=== PATIENT | female | born 1960 | race Caucasian/White ===

== ENCOUNTER 2017-01-07 17:20 | Emergency (ER) | payer BC ==
[2017-01-07 17:32] VITALS: BP 141/87
--- NOTE | 2017-01-07 17:57 | UC ---
Minor Trauma HPI - HPI Summary HPI Summary: 56 y/o female presents to the urgent care c/o Rt rib pain pablito has become worse for the past 2 days on deep breaths. Pt reports he fell off a horse 3 weeks ago and injured her RT shoulder. No chest x-ray done at the ER since her pain was more on the Rt shoulder. Pain is 6/10 when she coughs, take deep breaths, or makes certain movement. She has been taking Ibuprofen to alleviate symptoms which has helped. Pt denies chest pain, SOB, N/V/D, abdominal pain, urinary problems. - History of Current Complaint Chief Complaint: UCTrauma Stated Complaint: RT SIDE RIB AREA PAIN Time Seen by Provider: 01/07/17 17:36 Hx Obtained From: Patient ?: No Onset/Duration: Gradual Onset - after falling from a horse, Lasting Days - 2 days, Still Present Onset Of Pain: Post Accident Severity Initially: Mild Severity Currently: Moderate Pain Intensity: 6 - on depp breathing Pain Scale Used: 0-10 Numeric Mechanism Of Injury: Blunt Trauma, Fall From Height Of: - from a horse Aggravating Factor(s): Coughing, Deep Breaths, Movement Alleviating Factor(s): OTC Meds - Risk Factors Penetrating Injury Risk Factors: Negative - Allergies/Home Medications Allergies/Adverse Reactions: Allergies Allergy/AdvReac Type Severity Reaction Status Date / Time No Known Allergies Allergy Verified 01/07/17 17:32 PMH/Surg Hx/FS Hx/Imm Hx Previously Healthy: Yes - Surgical History Surgical History: Yes Surgery Procedure, Year, and Place: left wrist surgery - Family History Known Family History: Positive: Diabetes Negative: Cardiac Disease, Hypertension - Social History Occupation: Employed Full-time Lives: With Family Alcohol Use: Occasionally Substance Use Type: None Smoking Status (MU): Never Smoked Tobacco Review of Systems Constitutional: Negative Skin: Negative Eyes: Negative ENT: Negative Respiratory: Negative Cardiovascular: Negative Gastrointestinal: Negative Genitourinary: Negative Motor: Negative Neurovascular: Negative Musculoskeletal: Other: - RT side RiB pain s/p fall Neurological: Negative Psychological: Negative All Other Systems Reviewed And Are Negative: Yes Physical Exam Triage Information Reviewed: Yes Appearance: Well-Appearing, No Pain Distress, Well-Nourished Vital Signs: Initial Vital Signs Temp 98.8 F 01/07/17 17:27 Pulse 93 09/05/17 17:27 Resp 16 01/07/17 17:27 BP 141/87 01/07/17 17:27 Pulse Ox 98 01/07/17 17:27 Vital Signs Reviewed: Yes Eye Exam: Normal Eyes: Positive: Conjunctiva Clear - PERRLA, EOMI ENT Exam: Normal ENT: Positive: Normal ENT inspection, Hearing grossly normal, Pharynx normal, TMs normal Dental Exam: Normal Neck exam: Normal Neck: Positive: Supple, Nontender, No Lymphadenopathy Respiratory Exam: Normal Respiratory: Positive: Chest non-tender, Lungs clear, Normal breath sounds Cardiovascular Exam: Normal Cardiovascular: Positive: RRR, No Murmur, Pulses Normal, Brisk Capillary Refill Abdominal Exam: Normal Abdomen Description: Positive: Nontender, No Organomegaly, Soft. Negative: CVA Tenderness (R), CVA Tenderness (L) Bowel Sounds: Positive: Present Musculoskeletal: Positive: Strength Intact, Other: - Mild Tendernes to palaption over the Rt side ribs between rib 9-11, no swelling or erythema observed. Specially on deep breathing. Neurological Exam: Normal Psychological Exam: Normal Skin Exam: Normal Minor Trauma Course/Dx - Course Course Of Treatment: 56 y/o female presents to the urgent care c/o Rt rib pain pablito has become worse for the past 2 days on deep breaths. Pt reports he fell off a horse 3 weeks ago and injured her RT shoulder. No chest x-ray done at the ER since her pain was more on the Rt shoulder. Pain is 6/10 when she coughs, take deep breaths, or makes certain movement. She has been taking Ibuprofen to alleviate symptoms which has helped. Pt denies chest pain, SOB, N/V/D, abdominal pain, urinary problems. Hx obtained. RT RIB unilateral X-ray ordered Impression:No evidence of Rt rib fracture or otehr traumatic injury. Most likely Muscle spasm. Ibuprofen 800mg PO given to pt at the clinic for pain. Pt tolerated well medication and felt better.Pt Rx Naproxen PO and Flexeril PO to allevaite muscle spasm and pain. Advised if symptoms do not improve to f/u with her PCP or return to the urgent care for further management. Pt BP mildly elevated today. Pt advised to decrease salt in her diet and monitor BP if continues to be elevated to f/u with her PCP. Pt understood and agreed and aleft the clinic ambulating. A&OX3 - Differential Dx/Diagnosis Differential Diagnosis/HQI/PQRI: Abrasion(s), Contusion(s), Fracture Provider Diagnoses: 1- Right Rib pain. 2- Muscle spasm. 3- Elevated BP w/o Hx of HTN Discharge - Discharge Plan Condition: Stable Disposition: HOME Prescriptions: Cyclobenzaprine TAB* [Flexeril 10 MG TAB*] 10 mg PO TID PRN #15 tab PRN Reason: Spasms - Muscle Naproxen TAB* [Naprosyn 250 mg TAB*] 500 mg PO Q8H PRN #21 tab PRN Reason: Pain Patient Education Materials: Low Sodium Diet (ED), Muscle Spasm (ED) Referrals: Nancy Cummings MD [Primary Care Provider] - 2 Days Additional Instructions: 1-Please take Medication as directed to alleviate muscle spasm and pain. Please avoid strenuous exercise, driving. and rest.. 2-If symptoms do not improve or worsen please return to the urgent care or f/u with your PCP for further evaluation and treatment. 3- Your BP today is elevated, please decrease salt in your diet, monitor your BP , if it continues to be elevated please f/y with your PCP for further management.
[2017-01-07] MEDS ORDERED: Ibuprofen TAB* 400 MG PO ONE (18:52)
--- NOTE | 2017-01-07 19:00 | RAD ---
Indication: RIGHT rib pain post fall 3 weeks ago. Pain with deep inspiration. Comparison: No relevant prior exams available on the [facility] [place] PACS. Technique: Dual energy PA chest and 4 dedicated views of the RIGHT ribs obtained. Report: Inferolateral skin marker noted indicating the site of clinical concern. No RIGHT rib fracture, pulmonary contusion, pleural effusion, or pneumothorax evident. The heart, pulmonary vasculature, and mediastinal contours are unremarkable. Unremarkable soft tissue contours. IMPRESSION: No evidence for RIGHT rib fracture or other traumatic injury.
== END 2017-01-07 19:22 | disposition home or self-care (01) ==
LOC: UCCORT 17:20
DX: R07.81 Pleurodynia (principal); M62.838 Other muscle spasm; R03.0 Elevated blood-pressure reading, without diagnosis of hypertension
CPT/HCPCS: 99212; A9270-GY; G0463

== ENCOUNTER 2018-03-08 07:23 | Emergency (ER) | payer BC ==
--- OUTSIDE RECORDS SUMMARY | 2018-03-08 07:41 | XMS REPORT ---
:1960 External Reference #:[id number] 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 Payers Type Date Identification Numbers Payment Provider Subscriber Commercial Effective: Policy Number: [facility] Commercial Amelia Chen 2012 [id number] PayID: [id number] [address] [place] [place] [id number] Medigap Part B Effective: Policy Number: [facility] Commercial Amelia Chen 2011 [id number] Expires: 2012 PayID: [id number] [facility] [id number] [place] [phone] Problems Date Description Provider Status Onset: 11/26/2012 Nancy Cuellar MD Active Onset: 11/15/2011 Genital herpes simplex Nancy Cuellar MD Active Onset: 09/20/2010 FH: Skin disease Nancy Cuellar MD Active Onset: 09/15/2009 Posterior rhinorrhea Nancy Cuellar MD Active Onset: 09/15/2009 Vitamin D deficiency Nancy Cuellar MD Active Onset: 06/07/2008 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 Onset: 07/17/2006 Tension-type headache Nancy Cuellar MD Active Onset: 03/12/2005 Moderate recurrent major depression Nancy Cuellar MD Active Onset: 03/12/2005 Elevated blood-pressure reading without Nancy Cuellar MD Active diagnosis of hypertension Onset: 03/02/2015 History of malignant neoplasm of skin Nancy Cuellar MD Active Onset: 03/02/2015 Osteochondropathy Nancy Cuellar MD Active Family History Date Family Member(s) Problem(s) Comments Father Hypertension Father Cancer, Skin Father DM2 Father Diabetes, Adult Mother Hypertension Mother due to Cancer, Lung () Mother Hypercholesterolemia First Son No Current Problems First Daughter No Current Problems First Brother Cancer, Skin First Sister Cancer, Skin Second Sister Depression Second Sister Osteoporosis Social History Type Date Description Comments Marital Status Lives With Alone 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 Allergies, Adverse Reactions, Alerts Date Description Reaction Status Severity Comments 12/10/2004 NKDA active Medications Medication Date Status Form Strength Qnty SIG Indications Ordering Provider Vitamin D High 03/02 Active Capsules 1000Unit 30cap 1 [facility] mouth [facility].9 [facility] every day Nancy rivera MD Cyclobenzaprine 07/09 Active Tablets 5mg 90tab 1 by mouth M50.00 [place] HCL /2012 s three times Nancy rivera, a day as MD needed, caution sedation Valacyclovir HCL 12/27 Active Tablets 500mg 6tabs 1 po bid x A60.9 [place] /2005 3 day prn Nancy rivera for MD outbreak Doxycycline 10/28 Hx Tablets 100mg 28tab 1 by mouth R50.9 [place] Monohydrate /2017 s twice daily Nancy rivera, - 1 hour 02/23 before meal Melatonin 03/02 Hx Capsules 2.5mg 30cap 1 by mouth G47.9 Cun s every night Nancy rivera, - at bedtime 03/20 as needed /2016 Miralax 03/02 Hx Powder 3350NF 1Can 17 grams in K59.00 8 oz of m, Nancy, - fluid every MD 03/07 day needed constipatio n Massage Therapy 03/02 Hx as needed, M50.00 [place] /2014 medically Nancy rivera, - necessary MD 03/07 Flonase Allergy Hx Suspension 50mcg/Act 1-2 sprays J30.9 Unknown Relief /0000 each - nostril 1-2 10/27 times daily Immunizations CPT Code Status Date Vaccine Lot # [id number] Given 10/25/1999 Tetanus And Diptheria Toxoids For Adult Use-preservative free [id number] Refused 03/02/2015 Tdap (Adacel) Ages 7 And Above Only Vital Signs Date Vital Result Comment 02/24/2018 Body Temperature 98.9 F Weight 145.00 lb Heart Rate 73 /min BP Systolic 112 mmHg BP Diastolic 70 mmHg Respiratory Rate 16 /min Height 62.5 inches 5'2.50" O2 % BldC Oximetry 97 % ra BMI (Body Mass Index) 26.1 kg/m2 10/28/2017 Body Temperature 101.1 F Weight 139.00 lb Heart Rate 69 /min BP Systolic 118 mmHg BP Diastolic 76 mmHg Respiratory Rate 16 /min Height 62.5 inches 5'2.50" O2 % BldC Oximetry 98 % ra BMI (Body Mass Index) 25.0 kg/m2 08/04/2017 Body Temperature 98.4 F Weight 145.00 lb Heart Rate 72 /min BP Systolic 130 mmHg BP Diastolic 70 mmHg Respiratory Rate 18 /min Height 62.5 inches 5'2.50" BMI (Body Mass Index) 26.1 kg/m2 03/20/2017 Weight 141.00 lb Heart Rate 72 /min BP Systolic 130 mmHg BP Diastolic 80 mmHg Height 62.5 inches 5'2.50" BMI (Body Mass Index) 25.4 kg/m2 03/07/2016 Weight 145.00 lb Heart Rate 74 /min BP Systolic 120 mmHg BP Diastolic 80 mmHg Respiratory Rate 18 /min Height 62.25 inches 5'2.25" BMI (Body Mass Index) 26.3 kg/m2 03/02/2015 Weight 145.50 lb Heart Rate 66 /min BP Systolic 118 mmHg BP Diastolic 78 mmHg Respiratory Rate 18 /min Height 62.25 inches 5'2.25" BMI (Body Mass Index) 26.4 kg/m2 02/01/2014 Weight 144.00 lb Heart Rate 74 /min BP Systolic 122 mmHg BP Diastolic 80 mmHg Respiratory Rate 18 /min Height 62.5 inches 5'2.50" 11/26/2012 Weight 139.31 lb Heart Rate 72 /min BP Systolic 110 mmHg BP Diastolic 66 mmHg Respiratory Rate 18 /min Height 62.5 inches 5'2.50" 01/09/2012 Weight 133.00 lb Heart Rate 78 /min BP Systolic 120 mmHg BP Diastolic 82 mmHg Respiratory Rate 16 /min 11/15/2011 Weight 133.00 lb Heart Rate 92 /min BP Systolic 120 mmHg BP Diastolic 78 mmHg Respiratory Rate 15 /min Height 62.25 inches 5'2.25" 07/30/2011 Body Temperature 99.8 F Weight 135.00 lb Heart Rate 78 /min BP Systolic 132 mmHg BP Diastolic 90 mmHg Respiratory Rate 16 /min 06/03/2011 BP Systolic 122 mmHg BP Diastolic 74 mmHg 06/03/2011 Weight 135.12 lb Heart Rate 80 /min BP Systolic 142 mmHg BP Diastolic 104 mmHg Respiratory Rate 18 /min Height 62.25 inches 5'2.25"09/20/2010 Weight 133.00 lb Heart Rate 80 /min BP Systolic 114 mmHg BP Diastolic 72 mmHg Respiratory Rate 16 /min Height 62.25 inches 5'2.25" 09/15/2009 Weight 141.12 lb Heart Rate 60 /min BP Systolic 120 mmHg BP Diastolic 80 mmHg Respiratory Rate 16 /min Height 62.5 inches 5'2.50" 07/14/2009 Body Temperature 98.8 F Weight 141.00 lb Heart Rate 90 /min BP Systolic 110 mmHg BP Diastolic 72 mmHg Respiratory Rate 16 /min 02/20/2009 Body Temperature 98.4 F Weight 144.00 lb Heart Rate 74 /min BP Systolic 122 mmHg BP Diastolic 86 mmHg Respiratory Rate 16 /min 07/26/2008 Weight 138.00 lb Heart Rate 70 /min BP Systolic 122 mmHg BP Diastolic 80 mmHg Respiratory Rate 14 /min 06/07/2008 Weight 142.12 lb Heart Rate 78 /min BP Systolic 122 mmHg LEFT BP Diastolic 78 mmHg LEFT Respiratory Rate 14 /min Height 62.50 inches 5'2.50" 05/25/2008 Weight 142.00 lb Heart Rate 80 /min BP Systolic 108 mmHg BP Diastolic 70 mmHg Respiratory Rate 14 /min Height 62.50 inches 5'2.50" 01/25/2008 Weight 136.00 lb Heart Rate 76 /min BP Systolic 112 mmHg BP Diastolic 70 mmHg Respiratory Rate 16 /min Height 62.50 inches 5'2.50" 07/23/2007 Weight 146.00 lb Heart Rate 78 /min BP Systolic 126 mmHg BP Diastolic 90 mmHg Respiratory Rate 18 /min Height 62.50 inches 5'2.50" 06/16/2007 Body Temperature 102.2 F Weight 149.00 lb Heart Rate 80 /min BP Systolic 118 mmHg BP Diastolic 80 mmHg Respiratory Rate 18 /min Height 62.50 inches 5'2.50" O2 % BldC Oximetry 98 % 01/19/2007 Body Temperature 18.0 F Weight 143.00 lb Heart Rate 72 /min BP Systolic 132 mmHg BP Diastolic 82 mmHg Height 62.50 inches 5'2.50" 07/17/2006 Weight 140.00 lb Heart Rate 72 /min BP Systolic 130 mmHg BP Diastolic 80 mmHg Height 62.50 inches 5'2.50" 06/17/2006 Weight 142.00 lb BP Systolic 120 mmHg BP Diastolic 80 mmHg Height 62.50 inches 5'2.50" 05/21/2006 Weight 142.00 lb Heart Rate 67 /min BP Systolic 120 mmHg BP Diastolic 80 mmHg Respiratory Rate 17 /min Height 62.50 inches 5'2.50" 05/17/2006 Body Temperature 97.8 F Weight 138.38 lb Heart Rate 60 /min BP Systolic 110 mmHg BP Diastolic 70 mmHg Height 62.50 inches 5'2.50" 12/27/2005 Weight 136.44 lb Heart Rate 68 /min BP Systolic 140 mmHg BP Diastolic 90 mmHg Respiratory Rate 16 /min 09/09/2005 Body Temperature 97.9 F Weight 136.00 lb Heart Rate 60 /min BP Systolic 124 mmHg BP Diastolic 84 mmHg Respiratory Rate 16 /min 03/12/2005 Weight 134.00 lb Heart Rate 64 /min BP Systolic 120 mmHg BP Diastolic 88 mmHg 12/10/2004 Weight 133.00 lb Heart Rate 69 /min BP Systolic 104 mmHg BP Diastolic 82 mmHg Respiratory Rate 18 /min Results Test Date Test Result H/L Range Note Laboratory test finding 02/24/2018 Throat Culture <pending> Hga Antibodies,IgG and IgM -RL 10/29/2017 Hga AB Igg <1:80 1, 2 Hga AB Igm < 1:16 1, 3 R Rickettsii AB G/M -RL 10/29/2017 R Rickettsii AB Igg <1:64 1, 4 R Rickettsii AB Igm <1:64 1, 5 Babesia M AB Igg Igm -RL 10/29/2017 Babesia Microti Igg < 1:16 1, 6 Babesia Microti Igm <1:20 1, 7 Lyme Igm/Igg AB -RL 10/29/2017 Lyme Igm/Igg AB @ NEGATIVE (Neg) 1, 8 E Chaffeensis Abs 10/29/2017 E Chaffeensis Igg <1:64 1, 9 E Chaffeensis Igm < 1:16 1, 10 Laboratory test finding 10/29/2017 Esr 21 mm/hr High 0-20 1 CRP (C-Reactive) 1.33 mg/dL High 0.00-0.75 1 Comprehensive Met Panel[facility] [place] 10/29/2017 Sodium 143 mmol/L 135-146 1, 11 Potassium 4.1 mmol/L 3.5-5.2 1 Chloride# 105 mmol/L 97-110 1, 12 Carbon Dioxide 26 mmol/L 24-34 1 Glucose 129 mg/dL High 70-105 1 BUN 13 mg/dL 6-26 1 Creatinine 0.8 mg/dL 0.5-1.4 1 Calcium 9.6 mg/dL 8.5-10.2 1 Total Protein 6.7 g/dL 6.0-8.0 1 Albumin 4.3 g/dL 3.6-4.9 1 Globulin 2.4 g/dL 2.0-3.5 1 A/G Ratio 1.8 Ratio 1.0-2.2 1 Total Bilirubin 0.7 mg/dL 0.1-1.3 1 Alkaline Phosphatase 65 U/L 24-140 1 Alt 10 U/L 3-42 1 Ast 14 U/L 8-42 1 Trena Egfr >60 >60 1, 13 Non Trena Egfr >60 >60 1, 14 Anion Gap 12 mmol/L 5-15 1, 15 CBC with Auto Diff-[facility] [place] 10/29/2017 WBC 6.2 K/uL 4.1-11.0 1 RBC 4.92 M/uL 4.00-5.40 1 Hemoglobin 15.3 gm/dL 12.0-16.0 1 Hematocrit 44.3 % 36.0-47.0 1 MCV 90.0 fL 80.0-97.0 1 MCH 31.0 pg 27.0-32.0 1 MCHC 34.5 g/dL 32.0-36.0 1 RDW 13.3 % 11.5-14.5 1 PLT Count 191 K/ul 140-400 1 MPV 7.5 FL 7.1-10.7 1 Neutrophil 72.5 % 35.0-75.0 1 Lymphocyte 20.0 % 16.0-52.0 1 Monocyte 5.8 % 2.0-10.0 1 Eosinophil 0.9 % 0.0-5.0 1 Basophil 0.8 % 0.0-4.0 1 Abs Neutrophils 4.5 K/uL 2.1-8.0 1 Abs Lymphocytes 1.2 K/uL 0.8-5.5 1 Abs Monocytes 0.4 K/uL 0.1-1.0 1 Abs Eosinophils 0.1 K/uL 0.0-0.5 1 Abs Basophils 0.0 K/uL 0.0-0.3 1 Laboratory test finding 10/29/2017 PDF [id number] SEE IMAGE Anaplasma Phagocytophilum 10/29/2017 A. phagocytophilum PCR Negative Negative 16 Dna PCR Laboratory test finding 03/20/2017 Vit D25oh 34 ng/mL 31-100 Comprehensive Met 03/20/2017 Sodium 141 mmol/L 135-146 17 Panel-[facility] Potassium 4.7 mmol/L 3.5-5.2 Chloride# 103 mmol/L 97-110 18 Carbon Dioxide 29 mmol/L 24-34 Glucose 90 mg/dL 70-105 Creatinine 0.8 mg/dL 0.5-1.4 Calcium 10.0 mg/dL 8.5-10.2 Total Protein 7.1 g/dL 6.0-8.0 Albumin 4.6 g/dL 3.6-4.9 Globulin 2.5 g/dL 2.0-3.5 A/G Ratio 1.8 Ratio 1.0-2.2 Total Bilirubin 0.5 mg/dL 0.1-1.3 Alkaline Phosphatase 70 U/L 24-140 Alt 22 U/L 3-42 Ast 21 U/L 8-42 Trena Egfr >60 >60 19 Non Trena Egfr >60 >60 20 Anion Gap 9 mmol/L 7-16 21 BUN 19 mg/dL 6-26 Lipid 03/20/2017 Cholesterol 196 mg/dL 50-199 Triglycerides 63 mg/dL 30-200 HDL 88 mg/dL High 35-85 22 Chol/ HDL Ratio 2.2 ratio Low 3.7-5.6 VLDL 13 mg/dL 2-29 LDL (Calc) 96 mg/dL 20-99 23 Laboratory test finding 03/20/2017 TSH 1.78 uIU/mL 0.35-4.94 Hepatitis C Virus Antibody NON REACTIVE S/CORatio(Henry Non Reactive 24 Laboratory test finding 03/02/2015 Pap Smear Thin Prep ok 25, 26 Laboratory test finding 02/01/2014 % A1c 5.6 % 4.1-6.5 BUN 14.0 mg/dL 7.0-18.0 BUN/Creat Ratio 15.6 ratio 12.0-20.0 Calcium 9.1 mg/dL 8.7-10.5 Chloride 106.0 mmol/L 98.0-107.0 Co2 24.0 mmol/L 22.0-30.0 Creatinine-Serum 0.9 mg/dL 0.7-1.2 Glucose 101.0 mg/dL 75.0-110.0 Potasium 4.1 mmol/L 3.6-5.0 Sodium 140.0 mmil/L 137.0-145.0 Vitamin D 40.6 ng/mL 30.0-100.0 eGFR 69.3 Laboratory test finding 11/26/2012 Culture Urine See Note 27 Urine Bacteria Very Few None Seen Urine Epithelial Cells Very Few None Seen /lpf Urine RBC 0-2 rbc/hpf 0-7 Urine WBC 0-2 wbc/hpf 0-7 Laboratory test finding 01/09/2012 Estradiol,Serum < 10.7 pg/mL 28, 29 FSH 76.3 mIU/mL 28, 30 Free T4 0.90 ng/dL 0.75-1.54 28 TSH 1.155 uIU/ml 0.50-6.00 28 Laboratory test finding 11/25/2011 A/G Ratio 1.4 1.0-2.2 31 Absolute Basophils 0.083 K/ul 0.0-0.3 31 Absolute Eosinophils 0.086 K/ul 0.0-0.5 31 Absolute Lymphocytes 1.38 K/ul 0.8-4.8 31 Absolute Monocytes 0.289 K/ul 0.1-1.0 31 Absolute Neutrophils 1.91 K/ul Low 2.05-7.63 31 Albumin 3.9 g/dL 3.5-5.0 31 Alkaline Phosphatase 62 U/L 30-126 31 Alt 15 U/L 9-52 31 Ast 19 U/L 14-36 31 BUN 18 mg/dL 7-18 31 BUN/CR Ratio 23.8 Ratio High 12-20 31 Basophil 2.2 % High 0-2 31 Calcium 8.9 mg/dL 8.7-10.5 31 Carbon Dioxide 26 mmol/L 22-30 31 Chloride 106 mmol/L 98-107 31 Creatinine, Serum 0.7 mg/dL 0.7-1.2 31 Eosinophil 2.3 % 0-4 31 Globulin 2.8 g/dL 2.7-4.3 31 Glucose 80 mg/dL 65-105 31 Hematocrit 39.6 % 37.0-51.0 31 Hemoglobin 13.3 GM/dl 12.0-16.0 31 Hemoglobin A1c 5.4 % 4.1-6.5 31 Lymphocytes 36.9 % 20-44 31 MCH 28.6 pg 26.0-32.0 31 MCHC 33.7 g/dL 31.0-36.0 31 MCV 85 FL 80-97 31 Monocytes 7.7 % 2-10.0 31 Neutrophils 50.9 % 50-70 31 Platelet Count 191 K/ul 140-440 31 Potassium 4.3 mmol/L 3.6-5.0 31 RBC 4.67 M/ul 4.2-6.3 31 RDW 13.8 % 11.5-14.5 31 Sodium 138 mmol/L 137-145 31 TSH 1.682 uIU/ml 0.50-6.00 31 Total Bilirubin 0.4 mg/dL 0.2-1.3 31 Total Protein 6.7 g/dL 6.3-8.2 31 WBC 3.8 K/ul Low 4.1-10.9 31 Lipid Panel 11/25/2011 Chol/HDL Ratio 2.1 31 Cholesterol 179 mg/dL 50-199 31 HDL Cholesterol 82 mg/dL 29-86 31 LDL 86 mg/dL 20-129 31, 32 Triglycerides 57 mg/dL 30-249 31 VLDL Cholesterol 11 mg/dL 31 Laboratory test finding 11/25/2011 Insulin 5.9 uIU/mL 2.6-24.9 33 Vitamin D,25-Hydroxy 40.3 ng/mL 30.0-100.0 34 Laboratory test finding 11/15/2011 [id number] See Note ok neg 35 GC / Chlamydia See Note neg neg 36 Microalbumin,Urine 6.6 mg/L 0.0-18.5 Microalbumin/Creatinine Ratio 9.9 ug/mgCrt 0.0-30.0 Urine Creatinine Conc 67 mg/dL Laboratory test finding 09/20/2010 Cytology Pap See Note ok, infl 37 Laboratory test finding 03/19/2010 Vitamin D,25-Hydroxy 42.8 ng/mL 32.0- 100.0 38 Laboratory test finding 09/15/2009 Microalbumin,Urine 8.5 mg/L 0.0-15.0 39 Microalbumin/Creatinine Ratio 14.7 ug/mgCrt 0.0-30.0 40 Urine Creatinine Conc 58 mg/dL 41 Laboratory test 02/20/2009 Tick Id <see comment> deer, degree 05/09 42 finding Laboratory test 02/20/2009 Vitamin 49.5 ng/mL 32.0-100.0 43 finding D,25-Hydroxy Laboratory test 09/12/2008 A/G Ratio 1.5 1.0-2.2 finding Absolute Basophils 0.060 K/ul 0.0-0.3 Absolute Eosinophils 0.089 K/ul 0.0-0.5 Absolute Lymphocytes 1.49 K/ul 0.8-4.8 Absolute Monocytes 0.345 K/ul 0.1-1.0 Absolute Neutrophils 2.69 K/ul 2.05-7.63 Albumin 4.2 g/dL 3.5-5.0 Alkaline Phosphatase 58 U/L 30-126 Alt 24 U/L 9-52 Ast 21 U/L 14-36 BUN 12 mg/dL 7-18 BUN/CR Ratio 14.8 Ratio 12-20 Basophil 1.3 % 0-2 Calcium 9.6 mg/dL 8.7-10.5 Carbon Dioxide 27 mmol/L 22-30 Chloride 104 mmol/L 98-107 Creatinine, Serum 0.8 mg/dL 0.7-1.2 Eosinophil 1.9 % 0-4 Globulin 2.8 g/dL 2.7-4.3 Glucose 80 mg/dL 65-105 Hematocrit 42.7 % 37.0-51.0 Hemoglobin 14.6 GM/dl 12.0-16.0 Lymphocytes 31.9 % 20-44 MCH 30.8 pg 26.0-32.0 MCHC 34.1 g/dL 31.0-36.0 MCV 90 FL 80-97 Monocytes 7.4 % 2-10.0 Neutrophils 57.5 % 50-70 Platelet Count 206 K/ul 140-440 Potassium 4.5 mmol/L 3.6-5.0 RBC 4.73 M/ul 4.2-6.3 RDW 11.5 % 11.5-14.5 Sodium 138 mmol/L 137-145 Total Bilirubin 0.4 mg/dL 0.2-1.3 Total Protein 7.0 g/dL 6.3-8.2 Vitamin D,25-Hydroxy 34.3 ng/mL 32.0-100.0 44 WBC 4.7 K/ul 4.1-10.9 Laboratory test finding 07/26/2008 Cytology Pap pap ok 45 Laboratory test finding 03/29/2008 Vitamin D,25-Hydroxy 52.9 ng/mL 32.0- 100.0 46 Laboratory test finding 01/25/2008 Vitamin D,25-Hydroxy 27.4 ng/mL Low 32.0-100.0 47 Laboratory test finding 09/01/2007 Vitamin D,25-Hydroxy 26.4 ng/mL Low 32.0-100.0 48 Lipid Panel 07/30/2007 Chol/HDL Ratio 2.4 49 Cholesterol 180 mg/dL 50-199 49 HDL Cholesterol 74 mg/dL 29-86 49 LDL 98 mg/dL 20-129 49, 50 Triglycerides 41 mg/dL 30-249 49 VLDL Cholesterol 8 mg/dL 49 Laboratory test finding 07/30/2007 A/G Ratio 1.9 1.0-2.2 49 Absolute Basophils 0.03 K/ul 0.0-0.3 49 Absolute Eosinophils 0.11 K/ul 0.0-0.5 49 Absolute Lymphocytes 1.71 K/ul 0.8-4.8 49 Absolute Monocytes 0.28 K/ul 0.1-1.0 49 Absolute Neutrophils 2.44 K/ul 2.05-7.63 49 Albumin 4.5 g/dL 3.5-5.0 49 Alkaline Phosphatase 67 U/L 38-126 49 Alt 19 U/L 9-52 49 Ast 22 U/L 14-36 49 BUN 13 mg/dL 7-18 49 BUN/CR Ratio 17.1 Ratio 12-20 49 Basophil 0.7 % 0-2 49 Calcium 9.3 mg/dL 8.7-10.5 49 Carbon Dioxide 29 mmol/L 22-30 49 Chloride 104 mmol/L 98-107 49 Creatinine, Serum 0.8 mg/dL 0.7-1.2 49 Eosinophil 2.3 % 0-4 49 Globulin 2.4 g/dL Low 2.7-4.3 49 Glucose 83 mg/dL 65-105 49 Hematocrit 42.5 % 37.0-51.0 49 Hemoglobin 14.7 GM/dl 12.0-16.0 49 Lymphocytes 37.4 % 20-44 49 MCH 31.7 pg 26.0-32.0 49 MCHC 34.5 g/dL 31.0-36.0 49 MCV 92 FL 80-97 49 Monocytes 6.2 % 2-10.0 49 Neutrophils 53.4 % 50-70 49 Platelet Count 182 K/ul 140-440 49 Potassium 4.5 mmol/L 3.6-5.0 49 RBC 4.62 M/ul 4.2-6.3 49 RDW 11.8 % 11.5-14.5 49 Sodium 142 mmol/L 137-145 49 Total Bilirubin 0.4 mg/dL 0.2-1.3 49 Total Protein 6.9 g/dL 6.3-8.2 49 Vitamin D,25-Hydroxy 10.7 ng/mL Low 32.0-100.0 49, 51 WBC 4.6 K/ul 4.1-10.9 49 Laboratory test finding 07/23/2007 Cytology Pap normal, yeast 52 Laboratory test finding 06/16/2007 Culture Throat Normal Throat FL <See 53 Note> Laboratory test finding 07/17/2006 Atypical Lymph% 2 % 0-7 Basophil% 5 % High 0-2 Eosinophil% 3 % 0-5 Hematocrit 45.2 % 34.0-46.0 Hemoglobin 15.6 gm/dL High 11.5-15.5 Lymph% 28 % 17-56 Mean Cell Volume 93.1 fL 80.0-96.0 Mean Corpuscular HGB 32.2 pg 27.0-33.0 Mean Corpuscular HGB Conc 34.6 g/dL 31.7-36.0 Mean Platelet Volume 7.9 fl 6.6-10.6 Monocyte% 5 % 0-10 Neutrophils% 57 % 33-73 Platelet Count 212 K/uL 150-400 Platelet Estimate Normal RBC Morphology Normal Red Blood Count 4.86 M/uL 3.90-5.20 Red Cell Distri Width %CV 13.8 % 11.6-15.8 Total Cells Counted 100 #Cells White Blood Count 5.0 K/uL 3.4-10.5 Laboratory test finding 07/17/2006 Cytology Pap normal 54 HPV neg 55 Laboratory test finding 07/17/2006 A/G Ratio 1.6 1.0-2.2 56 Albumin 4.1 g/dL 3.5-5.0 56 Alkaline Phosphatase 68 U/L 38-126 56 Alt 33 U/L 9-52 56 Ast 23 U/L 14-36 56 BUN 14 mg/dL 7-18 56 BUN/CR Ratio 16.3 Ratio 12-20 56 Calcium 9.4 mg/dL 8.7-10.5 56 Carbon Dioxide 27 mmol/L 22-30 56 Chloride 102 mmol/L 98-107 56 Creatinine, Serum 0.8 mg/dL 0.7-1.2 56 Globulin 2.5 g/dL Low 2.7-4.3 56 Glucose 83 mg/dL 65-105 56 Potassium 4.4 mmol/L 3.6-5.0 56 Sodium 140 mmol/L 137-145 56 Total Bilirubin 0.4 mg/dL 0.2-1.3 56 Total Protein 6.6 g/dL 6.3-8.2 56 Laboratory test finding 05/21/2006 Culture Urine No Growth: Final 57 <See Note> Laboratory test finding 12/30/2005 HSV I Igg 3.3 index High 0.0-0.8 58 HSV I/II Igg 23.4 index High 0.0-0.8 59 HSV II Igg Type Specific <0.9 index 0.0-0.8 60 Laboratory test finding 04/02/2005 TSH (Thyroid Stimulating Horm) 1.651 Lipid Panel 04/02/2005 Cholesterol Total 224 Cholesterol/HDL Ratio 1.99 High Density Lipoprotein 113 Low Density Lipoprotein 96 Triglycerides 79 1 pt is treated with doxy Please do DNA PCR for anaplasmosis and Ehrlichiosis esiosis andanaplasmosis. today or schedule evelyn ; please do manual blood smears and look for bab 2 <1:80 Reference range: <1:80 INTERPRETIVE INFORMATION: A. phagocytophilum (HGA) Antibody, IgG Less than 1:80 - No significant level of IgG antibodies to A. phagocytophilum detected. Greater than or equal to 1:80 - Suggestive of a recent or past infection with A. phagocytophilum. Test developed and characteristics determined by [facility]. See Compliance Statement B: [employer]/CS 3 < 1:16 Reference range: < 1:16 INTERPRETIVE INFORMATION: A. phagocytophilum (HGA) Antibody, IgM Less than 1:16 - No significant level of IgM antibodies to A. phagocytophilum detected. Greater than or equal to 1:16 - Suggestive of a current or recent infection with A. phagocytophilum. Test developed and characteristics determined by [facility]. See Compliance Statement B: [employer]/CS Performed by [facility], [address] [place] [id number] [email or web address], Geovani Quinteros MD, Lab. Director Unless otherwise specified, testing performed by [facility] [address] [place] [address] 4 <1:64 Reference range: <1:64 INTERPRETIVE INFORMATION: Rickettsia rickettsii ([facility] Sp[facility]ever) Ab, IgG Less than 1:64 ....... Negative - No significant level of IgG antibody detected. 1:64 - 1:128 ......... Low Positive - Presence of IgG Antibody detected, suggestive of current or past infection. 1:256 or greater ..... Positive - Presence of IgG antibody detected, suggestive of current or past infection. Antibody reactivity to Rickettsia rickettsii antigen should be considered Spotted Fever group reactive. Other organisms within the group include R. akari, R. conorrii, R. australis and R. sibirica. Seroconversion, a fourfold or greater rise in antibody titer, between acute and convalescent sera is considered strong evidence of recent infection. Acute-phase specimens are collected during the first week of illness and convalescent-phase samples are generally obtained 2-4 weeks after resolution of illness. Ideally these samples should be tested simultaneously at the same facility. If the sample submitted was collected during the acute-phase of illness, submit a marked convalescent sample within 25 days for paired testing. 5 <1:64 Reference range: <1:64 INTERPRETIVE INFORMATION: Rickettsia rickettsii ([facility]. Spotted Fever) Ab, IgM Less than 1:64 ....... Negative - No significant level of IgM antibody detected. 1:64 or greater ...... Positive - Presence of IgM antibody detected, which may indicate a current or recent infection; however, low levels of IgM antibodies may occasionally persist for more than 12 months post-infection. Antibody reactivity to Rickettsia rickettsii antigen should be considered Spotted Fever group reactive. Other organisms within the group include R. akari, R. conorrii, R. australis and R. sibirica. Seroconversion, a fourfold or greater rise in antibody titer, between acute and convalescent sera is considered strong evidence of recent infection. Acute-phase specimens are collected during the first week of illness and convalescent-phase samples are generally obtained 2-4 weeks after resolution of illness. Ideally these samples should be tested simultaneously at the same facility. If the sample submitted was collected during the acute-phase of illness, submit a marked convalescent sample within 25 days for paired testing. The CDC does not use IgM results for routine diagnostic testing of [place] Spotted Fever, as the response may not be specific for the agent (resulting in false positives) and the IgM response may be persistent from past infection. Performed by [facility], [address] [place] [id number] [email or web address], Geovani Quinteros MD, Lab. Director Unless otherwise specified, testing performed by [facility] [address] [address] 6 < 1:16 Reference range: < 1:16 INTERPRETIVE INFORMATION: Babesia microti Antibody, IgG Less than 1:16 ........ Negative - No significant level of detectable Babesia IgG antibodies. 1:16 .................. Equivocal - Repeat testing in 10-14 days may be helpful. Greater than 1:16 ..... Positive - IgG antibodies to Babesia detected which may indicate a current or previous infection. Test developed and characteristics determined by [facility]. See Compliance Statement A: [employer]/CS 7 <1:20 Reference range: <1:20 INTERPRETIVE INFORMATION: Babesia microti Antibody, IgM Less than 1:20 ........ Negative - No significant level of detectable Babesia IgM antibodies. 1:20 .................. Equivocal - Repeat testing in 10-14 days may be helpful. Greater than 1:20 ..... Positive - IgM antibodies to Babesia detected which may indicate a current or recent infection. Test developed and characteristics determined by [facility]. See Compliance Statement A: [facility] Performed by [facility], [address] [place] [id number] www.[email or web address], Geovani Quinteros MD, Lab. Director Unless otherwise specified, testing performed by [facility] [address] [place] [id number] 8 A Negative serologic test for Lyme Disease indicates no serologic evidence of infection with B burgdorferi at the time this specimen was collected. A repeat specimen should be collected in 2 to 4 weeks if clinically indicated. Unless otherwise specified, testing performed by [facility] [address] [place] [address] 9 <1:64 Reference range: <1:64 INTERPRETIVE INFORMATION: Ehrlichia Chaffeensis IgG Ab Less than 1:64 ....... Negative: No significant level of Ehrlichia chaffeensis IgG antibody detected. 1:64-1:128 ........... Equivocal: Questionable presence of Ehrlichia chaffeensis IgG antibody detected. Repeat testing in 10-14 days may be helpful. 1:256 or greater ..... Positive: Presence of IgG antibody to Ehrlichia chaffeensis detected, suggestive of current or past infection. Seroconversion between acute and convalescent sera is considered strong evidence of recent infection. The best evidence for infection is a significant change (fourfold difference in titer) on two appropriately timed specimens, where both tests are done in the same laboratory at the same time. Test developed and characteristics determined by [facility]. See Compliance Statement B: [facility] 10 < 1:16 Reference range: < 1:16 INTERPRETIVE INFORMATION: Ehrlichia Chaffeensis IgM Ab Less than 1:16 ....... Negative - No significant level of Ehrlichia chaffeensis IgM antibody detected. 1:16 or greater ...... Positive - Presence of IgM antibody to Ehrlichia chaffeensis detected, suggestive of current or recent infection. While the presence of IgM antibodies suggest current or recent infection, low levels of IgM antibodies may occasionally persist for more than 12 months post-infection. A single IgM result should be interpreted with caution. Test developed and characteristics determined by [facility]. See Compliance Statement B: [facility] Performed by [facility], [address] [place] [address] www.[email or web address], Geovani Quinteros MD, Lab. Director Unless otherwise specified, testing performed by [facility] [address] [place] [address] 11 Updated reference range on new analyzer 12 Updated reference range on new analyzer 13 Concerning GFR Guidelines for Americans: Normal function or mild renal disease, if clinically at risk: >/=60 mL/min Moderately decreased: 30-59 Severely decreased: 15-29 Renal failure: <15 14 Concerning GFR Guidelines: Normal function or mild renal disease, if clinically at risk: >/=60 mL/min Moderately decreased: 30-59 Severely decreased: 15-29 Renal failure: <15 Glomerular Filtration Rate (GFR) is estimated based on the MDRD equation, which assumes a steady state for creatinine as recommended by the National Kidney Disease Education Program in conjunction with the National Institutes of Health and the National Kidney Foundation. Clinical conditions in which it may be necessary to measure GFR by using clearance methods include extremes of age and body size, severe malnutrition or obesity, diseases of skeletal muscle, paraplegia or quadriplegia, vegetarian diet, rapidly changing kidney function, and calculation of the dose of potentially toxic drugs that are excreted by the kidneys. 15 Updated Reference Range 16 No Anaplasma phagocytophilum DNA detected. A. phagocytophilum has been characterized as the causative agent of Human Granulocytic Ehrlichiosis (HGE). This test was developed and its performance characteristics determined by [facility]. It has not been cleared or approved by the Food and Drug Administration. 17 Updated reference range on new analyzer 18 Updated reference range on new analyzer 19 Concerning GFR Guidelines for Americans: Normal function or mild renal disease, if clinically at risk: >/=60 mL/min Moderately decreased: 30-59 Severely decreased: 15-29 Renal failure: <15 20 Concerning GFR Guidelines: Normal function or mild renal disease, if clinically at risk: >/=60 mL/min Moderately decreased: 30-59 Severely decreased: 15-29 Renal failure: <15 Glomerular Filtration Rate (GFR) is estimated based on the MDRD equation, which assumes a steady state for creatinine as recommended by the National Kidney Disease Education Program in conjunction with the National Institutes of Health and the National Kidney Foundation. Clinical conditions in which it may be necessary to measure GFR by using clearance methods include extremes of age and body size, severe malnutrition or obesity, diseases of skeletal muscle, paraplegia or quadriplegia, vegetarian diet, rapidly changing kidney function, and calculation of the dose of potentially toxic drugs that are excreted by the kidneys. 21 Updated reference range on new analyzer 22 Per NCEP ATP III Guidelines: Results lower than 40 mg/dL are suggestive of increased risk for coronary artery disease. Results > or=to 60 mg/dL are considered a negative risk factor. 23 Per NCEP ATP III Guidelines: Normal Population <130 Patients with medical conditions: CHD/DM Optimal: <100 Borderline high: 130-159 High: 160-189 Very high: >189 24 S/CO Ratio >/=1.0 is REACTIVE. S/CO <5.0 is Low Reactive. S/CO >/= 5.0 is High Reactive. Effective Dec 27, 2016 all anti-HCV reactive samples are sent for quantitative PCR confirmation. 25 Fastin hours 26 [employer] [facility] [place] [address] GYNECOLOGIC CYTOLOGY REPORT Accession Number: [id number] Source of Specimen(s): A: Thin Prep Cervical / Endocervical Pap Smear - One Vial Clinical Diagnosis and History: Date of Last Menstrual Period: 2012 Menstrual History: Post-menopausal Other Clinical Conditions: Last Pap Smear: 2011 neg REFLEX TO HPV ASSAY IF RESULTS OF THIS PAP ARE ASCUS Specimen Adequacy Satisfactory for evaluation Scant/no endocervical component General Categorization Negative for intraepithelial lesion or malignancy Interpretation NEGATIVE FOR INTRAEPITHELIAL LESION OR MALIGNANCY Reported: 03/06/2015 Electronically Signed Out By Jenny Wong SCT(ASCP)([facility]) [facility] Unless otherwise specified, testing performed by [facility] [place] [address] [place] [address] 27 COLONY COUNT ! >100,000 CFU/ml Organism 1 ! STAPHYLOCOCCUS SAPROPHYTICUS QUANTITY ! MANY RECOMMENDED THERAPY: ! ORAL CEPHALOSPORINS OR AMOXICILLIN/CLAV STAPHYLOCOCCUS SAPROPHYTICUS Target Route Dose M.I.C. RX AB COST ------ ----- -------- ------ -- ------ PENICILLIN G 0.25 R OXACILLIN 2 S TETRACYCLINE <=1 S NITROFURANTOIN <=16 S TRIMETHOPRIM/SULFAMETHOXAZOLE BLOOD PO DS <=10 S 0.39 AMOXICILLIN R AMOXICILLIN/CLAVULANATE S AMPICILLIN/SULBACTAM S CEFAZOLIN S GENTAMICIN <=0.5 S CIPROFLOXACIN <=0.5 S MOXIFLOXACIN <=0.25 S LEVOFLOXACIN 1 S CEFACLOR S CEFUROXIME S PIPERACILLIN R CEFTRIAXONE S VANCOMYCIN <=0.5 S 28 today letter 29 Reference Range: Follicular Phase ............... 19.5 - 144.2 pg/mL Mid- Cycle Peak ................. 63.9 - 356.7 pg/mL Luteal Phase ................... 55.8 - 214.2 pg/mL Postmenopausal Female .......... 0 - 32.2 pg/mL Males .......................... 0 - 9.8 pg/mL 30 NORMALLY MENSTRUATING FEMALES: Follicular Phase:...............4-13 mIU/mL Mid-Cycle Peak:.................5-22 mIU/mL Luteal Phase:...................2 -13 mIU/mL Postmenopausal Female:........20-138 mIU/mL 31 FASTING fasting, if abnl, office visit needed , vit d only taking intermittentl y 32 Normal Range: Male: <4.98 Female: <4.45 33 Performed at: [place] [facility] [address] [id number] Biomaterials Engineer: Verito Frye MD, Phone: [phone] 34 Vitamin D deficiency has been defined by the [place] of Medicine and an Endocrine Society practice guideline as a level of serum 25-OH vitamin D less than 20 ng/mL (1,2). The Endocrine Society went on to further define vitamin D insufficiency as a level between 21 and 29 ng/mL (2). 1. IOM ([place] of Medicine). 2010. Dietary reference intakes for calcium and D. [place]: The National Academies Press. 2. Tammi MF, Sebastián NC, Maurisio QUIÑONEZ, et al. Evaluation, treatment, and prevention of vitamin D deficiency: an Endocrine Society clinical practice guideline. JCEM. 2010; 96(7):1911-30. Performed at: RN - [facility] [address] [id number] Biomaterials Engineer: Verito Frye MD, Phone: [phone] 35 Cytology Laboratory [address] [place] [address], [address] [place] [address] CYTOLOGY REPORT Name: Amelia ChenLetha : 1960 (Age: 50) Sex: F Location: [facility] Med Rec. #: [id number] Date Collected: 11/15/2011 Billing #: [id number] Date Received : 11/15/2011 Requisition # [id number] Physician(s): NANCY CUELLAR MD Source of Specimen: ENDOCERVICAL/ECTOCERVICAL THIN PREP Clinical Information: Date of Last Menstrual Period: 10/15 Menstrual History: Regular Specimen Adequacy: SATISFACTORY FOR EVALUATION. ADEQUATE ENDOCERVICAL/TRANSFORMATION ZONE. General Categorization: NEGATIVE FOR INTRAEPITHELIAL LESION OR MALIGNANCY. lgs Electronic Signature MANPREET Zaragoza (ASCP) Reported: 11/19/2011 [facility] HPV High Risk Date Ordered: 11/18/2011 Status: Signed Out Date Reported: 2011 High Risk NEGATIVE (HPV types 16, 18, 31, 33, 35, 39, 45, 51, 52, 56, 58, 59, 66, 68) Cervista HPV HR Electronic Signature Pearl Mares [facility] ICD-9 Code(s) V72.31 36 [facility] [address], [address] [place] [address] GC / CHLAMYDIA REPORT Name: Amelia Chen : 1960 (Age: 50) Sex: F Location: [facility] Soc. Sec. #: [id number] Date Collected: 11/15/2011 Billing #: [id number] Date Received: 11/15/2011 Med. Rec. # [id number] Requisition # [id number] Physician(s) : NANCY CUELLAR MD Source of Specimen: ThinPrep, APTIMA Results: Neisseria gonorrhoeae NEGATIVE Chlamydia trachomatis NEGATIVE Comment: This analysis was performed using second generation nucleic acid amplification testing (NAAT). Reported: 11/18/2011 Electronic Signature [facility] Nilda Robledo ([facility]) [facility] ICD-9 Codes: A: V72.31 37 [facility] Laboratory [address], [address] [place] [address] CYTOLOGY REPORT Name: Amelia Chen : 1960 (Age: 49) Sex: F Location: [facility] Soc. Sec. #: [id number] Date Collected: 09/20/2010 Billing #: [id number] Date Received: 09/20/2010 Med. Rec. #: [id number] Requisition # [id number] Physician(s): NANCY CUELLAR MD Source of Specimen: ENDOCERVICAL/ECTOCERVICAL THIN PREP Clinical Information: Date of Last Menstrual Period: 09/07 Menstrual History: Regular Specimen Adequacy: SATISFACTORY FOR EVALUATION. ADEQUATE ENDOCERVICAL/TRANSFORMATION ZONE. General Categorization: NEGATIVE FOR INTRAEPITHELIAL LESION OR MALIGNANCY. Descriptive Evaluation: REACTIVE CELLULAR CHANGES ASSOCIATED WITH INFLAMMATION. Electronic Signature Blaine Dupree MD Reported: 09/25/2010 Also seen by: MANPREET Graham (ASCP) [facility] ICD-9 Code(s) V72.31 A: 616.9 38 Recent studies consider the lower limit of 32.0 ng/mL to be a threshold for optimal health. Serra . J Nutr. 2005 Jun;135(2):317-22. Performed at: RN - [facility] [address] [id number] Biomaterials Engineer: Blaine Gomez MD, Phone: [phone] FASTING 40 FASTING 41 FASTING 42 Specimen: [id number] - TEST: TICK doxy prophylaxis TEST: TICK 43 Specimen: [id number] - TEST: VD25 needs refills of meds, 50k weekly TEST : VD25 44 Recent studies consider the lower limit of 32.0 ng/mL to be a threshold for optimal health. [facility]. J Nutr. 2004;135(2):317-22. 45 Cytology [address], [address] [place] [address] CYTOLOGY REPORT Name: Amelia ChenLetha Accession # : [id number] : 1960 (Age: 47) Sex: F Location: [facility] Soc. Sec. #: [id number] Date Collected: 07/26/2008 Billing #: [id number] Date Received: 07/26/2008 Requisition # [id number] Physician(s): NANCY CUELLAR MD Source of Specimen: ENDOCERVICAL/ECTOCERVICAL THIN PREP Clinical Information: Date of Last Menstrual Period: 08/03 Menstrual History:Regular Specimen Adequacy: SATISFACTORY FOR EVALUATION. ADEQUATE ENDOCERVICAL/TRANSFORMATION ZONE. General Categorization: NEGATIVE FOR INTRAEPITHELIAL LESION OR MALIGNANCY. lgs Electronic Signature MANPREET Garcia (ASCP) Reported: 2008 [facility] ICD-9 Code(s) V72.31 46 Specimen: [id number] - TEST: VD25 obtain in 2 m, fu weekly 50k vitd started mid sept TEST: VD25 47 Specimen: [id number] - TEST: VD25 labs today, vit d 1200 daily, declines dexa TEST: VD25 48 Specimen: [id number] - TEST: VD25 obtain in one month to fu new 1000 iu daily vit d TEST: VD25 49 FASTING schedule fasting 50 Normal Range: Male: <4.98 Female: <4.45 51 Recent studies consider the lower limit of 32.0 ng/mL to be a threshold for optimal health. Serra BW. J Nutr. 2005 Jun;135(2):317-22. 52 Cytology [address], [address] [place] [address] CYTOLOGY REPORT Name: Amelia Chen Accession # : [id number] : 1960 (Age: 46) Sex: F Location: [facility] Soc. Sec. #: [id number] Date Collected: 07/23/2007 Billing #: [id number] Date Received: 07/23/2007 Physician(s): NANCY CUELLAR MD Source of Specimen: ENDOCERVICAL/ECTOCERVICAL THIN PREP Clinical Information: Date of Last Menstrual Period: 07/04/07 Menstrual History:Regular Specimen Adequacy: SATISFACTORY FOR EVALUATION. ADEQUATE ENDOCERVICAL/TRANSFORMATION ZONE. General Categorization : NEGATIVE FOR INTRAEPITHELIAL LESION OR MALIGNANCY. Descriptive Evaluation: FUNGAL ORGANISMS MORPHOLOGICALLY CONSISTENT WITH FATMATA SP. lar Electronic Signature MANPREET Graham (ASCP) Reported: 07/29/2007 [facility] ICD-9 Code(s) V72.31 A: 112.1 53 NORMAL THROAT SHELLI 54 Cytology Laboratory [address], [address] [place] [address] CYTOLOGY REPORT Name: Amelia Chen : 1960 (Age: 45) Sex: F Location: [facility] Soc. Sec. #: [id number] Date Collected: 07/17/2006 Billing #: [id number] Date Received: 07/17/2006 Physician(s): NANCY CUELLAR MD Source of Specimen: ENDOCERVICAL/ECTOCERVICAL THIN PREP Clinical Information: Date of Last Menstrual Period: 07/03/06 Menstrual History: Regular Specimen Adequacy: SATISFACTORY FOR EVALUATION. ADEQUATE ENDOCERVICAL/TRANSFORMATION ZONE. General Categorization : NEGATIVE FOR INTRAEPITHELIAL LESION OR MALIGNANCY. Descriptive Evaluation: REACTIVE CELLULAR CHANGES ASSOCIATED WITH INFLAMMATION. cf Electronic Signature Irene Leos MD Reported: 07/22/2006 Also seen by: MANPREET Hutchinson ([facility]) [facility] ICD-9 Code(s) V72.31 A: 616.9 55 [facility] [address] [place] [address], [address] [place] [address] DIGENE HYBRID CAPTURE II HPV TEST Name: Amelia Chen : 1960 (Age: 45) Sex: F Location: [facility] Soc. Sec. #: [id number] Date Collected: 07/17/2006 Billing #: [id number] Date Received: 07/17/2006 Physician(s): NANCY CUELLAR MD Source of Specimen: THIN PREP PAP Other Case Numbers: [id number] Results: Low Risk TEST NOT REQUESTED ON THIS SPECIMEN (HPV types 6, 11, 42, 43, 44) High Risk NEGATIVE ( HPV types 16, 18, 31, 33, 35, 39, 45, 51, 52, 56, 58, 59, 68) Reported: 07/21/2006 Electronic Signature [facility] Caitlyn Resendiz [place] [facility] ICD-9 Codes: A: V72.31 56 labs today 57 NO GROWTH: FINAL REPORT 58 Negative <0.9 Equivocal 0.9 - 1.0 Positive >1.0 Note: Negative indicates no antibodies detected to HSV-1. Equivocal may suggest early infection. If clinically appropriate, retest at later date. Positive indicates antibodies detected to HSV-1; coinfection with HSV 2 cannot be excluded without type specific testing. 59 Negative <0.9 Equivocal 0.9 - 1.0 Positive >1.0 Note: Negative indicates no antibodies detected to either HSV-1 or HSV-2. Equivocal may suggest early infection. If clinically appropriate, retest at a later date. Positive indicates antibodies detected to HSV-1 and/or HSV-2. 60 Negative <0.9 Equivocal 0.9 - 1.0 Positive >or=1.1 Note: Negative indicates no antibodies detected to HSV-2. Equivocal may suggest early infection. If clinically appropriate, retest at later date. Positive indicates antibodies detected to HSV-2; coinfection with HSV 1 cannot be excluded, without type specific testing. Procedures Date CPT Code Description Status Comment 02/24/2018 07409 Measure Blood Oxygen Level Completed Single Determination 03/20/2017 49418 Brief Emotional/Behav Completed Assessment W/ Scoring Doc Per Standard Inst 03/13/2017 53792 Bone Density Study (Dexa) Axial Completed Skeleton (Hips,Pelvis,Spine) 03/13/2017 Bone Mineral Density Test Completed 03/13/2017 Mammogram Completed Document: 03/13/17 - Digital Mammography Screening 03/14/2015 Mammogram Completed 02/23/2015 Bone Mineral Density Test Completed 02/23/2015 24864 Old Bone Density Study (Dexa) Completed 02/23/2015 80751 Bone Density Study (Dexa) Axial Completed Skeleton (Hips,Pelvis,Spine) 02/16/2014 69226 Mammography Unilateral Completed 02/01/2014 59884 Mammography Unilateral Completed 02/19/2013 22712 Bone Density Study, Single Completed Photon Absorptiometry 12/03/2012 12343 Mammography Unilateral Completed 11/27/2012 42929 Mammography Unilateral Completed 10/15/2010 80276 Mammography Unilateral Completed 10/08/2010 84671 Mammography Unilateral Completed 12/15/2009 Colonoscopy Completed 12/2009 dr [place], next in 10 yr Document: 12/05/09 - Colonoscopy Of 12/15/09 12/05/2009 80366 Colonoscopy Flexible Diagnostic Completed 09/26/2009 57217 Mammography Unilateral Completed 09/13/2008 71472 Mammography Unilateral Completed 09/12/2008 92770 Mammography Unilateral Completed 09/12/2008 53396 Bone Density Study, Single Completed Photon Absorptiometry 06/16/2007 35473 Measure Blood Oxygen Level Completed Single Determination 05/24/2005 15339 Electrocardiogram Completed Interpretation & Report Only Encounters Type Date Location Provider CPT E/M Dx Office Visit 10/28/2017 4:15p [facility] [place] [address] R51 R94.02 S09.90xA R50.9 Z68.25 Office Visit 08/04/2017 8:15a [facility] [place] [address] L02.214 Z68.26 Office Visit 03/20/2017 8:30a [facility] [place] [place] [address] Z01.419 Z83.3 E73.9 M85.80 E55.9 M50.00 Z85.828 A60.9 Z11.59 J30.9 Z12.31 R03.0 Z12.11 Z13.6 Office Visit 03/07/2016 8:30a [facility] [place] [place] [address] Z01.419 K59.00 E73.9 Z12.31 Z12.11 M85.80 E55.9 M50.00 Z85.828 J30.9 A60.9 G47.9 Office Visit 03/02/2015 8:30a [facility] [place] [place] [address] K59.00 R14.3 E73.9 G47.8 Z01.411 Z12.31 Z12.11 M85.80 M50.00 Z85.828 E55.9 Plan of Care Future Appointment(s):04/02/2018 8:30 am - Nancy Cuellar MD at [facility]2017 - Nancy Cuellar MDJ02.9 Acute pharyngitis, unspecifiedComments: pharyngitis. Rapid strep neg, symptoms suggest viral etiology, will check throat culture to be certain there is no bacterial involvement Advised pt that rapid strep usually picks up strep if present, but some of the time rapid testing does not, I usually do a throat culture to confirm no strep infection. Culture will also let us know if there are other abnormal bacteria present. Advised strep needs to be treated with in 7 days to avoid the sequelae of rheumatic fever and/or post strep glomerulonephritis.also discussed to expect worsening nasal congestion, hoarse voice, cough, ear sxs, may alldevelop due to viral infection. May use otc analgesics, decongestants, throat sprays, etc as needed.recommend vaporizer at night. Call if sxs worsen, fever lasts more than 3 days, shortness of breath or productive cough develop, any chest pain, any new rashes, any other concerns.Follow up:as fgzvahauiT78.83 SnoringComments:pt with snoringreports does not feel refreshed in the morningsh ehas headaches and family complains these symptoms suggest sleep apnea, referralReferral:Mary Silva MD, OxqkgqwshpzxsjN53.19 Tinnitus, unspecified earComments:referral to entReferral:Mary Silva MD, PrqwutxmasghegO30.109 Migraine with aura, not intractable, w/o status migrainosusComments:pt describes migraine with aura she does have Dr Bender she sees for brain mri findings that are notrelated. suggest : calendar headaches and related symptoms. seek care if aura occurs again, at that time. could use meds to abort headaches if this is a new pattern developing has had mri of brain, reassuring for no lbwjrU97.26 Body mass index ( BMI) 26.0-26.9, adultComments:Recommend reduced calorie healthy diet and regular exercise to help with weight loss.
[2018-03-08 07:53] VITALS: BP 143/72
--- NOTE | 2018-03-08 09:21 | UC ---
Skin Complaint HPI - HPI Summary HPI Summary: Pt presents c/o boil on tip of nose. Pt states that she has been followed by rn lab and PCP but has not had an active "boil" to culture and is requesting to have this "boil" cultured today. Pt is worried about having a "staph" infection. - History of Current Complaint Chief Complaint: UCSkin Time Seen by Provider: 03/08/18 08:19 Stated Complaint: POSSIBLE BOIL - NOSE Hx Obtained From: Patient Hx Last Menstrual Period: yrs ?: No Onset/Duration: Gradual Onset, Lasting Days, Still Present Skin Exposure Onset/Duration: Days Ago Timing: Constant Current Severity: Mild Pain Intensity: 4 Pain Scale Used: 0-10 Numeric Location: Nose Character: Redness, Raised, Painful Aggravating Factor(s): Touch Alleviating Factor(s): Nothing Associated Signs & Symptoms: Positive: Tenderness - Allergy/Home Medications Allergies/Adverse Reactions: Allergies Allergy/AdvReac Type Severity Reaction Status Date / Time No Known Allergies Allergy Verified 03/08/18 07:43 Home Medications: Home Medications Cholecalciferol TAB* [Vitamin D TAB*] 1,000 unit PO DAILY 03/08/18 [History Confirmed 03/08/18] Loratadine [Claritin 10 MG CAP] 10 mg PO DAILY 03/08/18 [History Confirmed 03/08] Multivitamin [Multivitamins] 1 cap PO DAILY 03/08/18 [History Confirmed 03/08/18 ] Review of Systems Constitutional: Negative Skin: Other - erythema, tender mass tip of nose Eyes: Negative ENT: Negative Respiratory: Negative Cardiovascular: Negative Gastrointestinal: Negative Genitourinary: Negative Motor: Negative Neurovascular: Negative Musculoskeletal: Negative Neurological: Negative Psychological: Negative Is Patient Immunocompromised?: No All Other Systems Reviewed And Are Negative: Yes PMH/Surg Hx/FS Hx/Imm Hx Previously Healthy: Yes - Surgical History Surgical History: Yes Surgery Procedure, Year, and Place: left wrist surgery - Family History Known Family History: Positive: None - Pr denies FMPHX, Diabetes Negative: Cardiac Disease, Hypertension - Social History Occupation: Employed Full-time Lives: With Family Alcohol Use: Occasionally Substance Use Type: None Smoking Status (MU): Never Smoked Tobacco Have You Smoked in the Last Year: No Physical Exam Triage Information Reviewed: Yes Appearance: Well-Appearing Vital Signs: Initial Vital Signs Temp 98.7 F 11/04/18 07:45 Pulse 74 03/08/18 07:45 Resp 16 03/08/18 07:45 BP 143/72 03/08/18 07:45 Pulse Ox 98 03/08/18 07:45 Eye Exam: Normal ENT Exam: Normal ENT: Positive: Other - firm mildly, tender, mild erythematous non flucuant mass ~ pea size area on tip of nose Dental Exam: Normal Neck exam: Normal Respiratory Exam: Normal Cardiovascular Exam: Normal Musculoskeletal Exam: Normal Neurological Exam: Normal Psychological Exam: Normal Skin Exam: Other - firm mildly, tender, mild erythematous non flucuant mass ~ pea size area on tip of nose Course/Dx - Course Course Of Treatment: I discussed with the pt the possibility of having MRSA and offered treatment for it. also, I discussed the need to keep vaccines UTD and to f/u with infectious disease. Pt verbalized understanding and agreed to plan of care. - Differential Diagnoses - Skin Complaint Differential Diagnoses: Abscess, Cellulitis, MRSA - Diagnoses Provider Diagnoses: cystic acne Discharge - Sign-Out/Discharge Documenting (check all that apply): Patient Departure All imaging exams completed and their final reports reviewed: No Studies - Discharge Plan Condition: Stable Disposition: HOME Prescriptions: Mupirocin 2% OINT* [Bactroban 2 % Oint*] 1 applic TOPICAL BEDTIME 30 Days #1 tube Patient Education Materials: Cyst (ED) Referrals: Nancy Cummings MD [Primary Care Provider] - If Needed Linda Peguero MD [Medical Doctor] - As Soon As Possible - Billing Disposition and Condition Condition: STABLE Disposition: Home
== END 2018-03-08 08:47 | disposition home or self-care (01) ==
LOC: UCCORT 07:23
DX: L70.0 Acne vulgaris (principal)
CPT/HCPCS: 87070; 87077; 87186; 87205; 99212; G0463